=== PATIENT | male | born 1970 | race Caucasian/White ===

== ENCOUNTER 2019-02-10 01:57 | Emergency (ER) | payer OTHER ==
[~2019-02-10] VITALS: Ht 165.1 cm; Wt 65.8 kg
[2019-02-10] MEDS ORDERED: HYDROCODONE-AP1 EAC6 PO (02:46)
[2019-02-10] MEDS ORDERED: BACTRIM DS TAB1 EACH PO (02:46)
[2019-02-10 03:37] VITALS: BP 165/78
== END 2019-02-10 03:30 | disposition home or self-care (01) ==
LOC: M.ERS 01:57
DX: L02.413 Cutaneous abscess of right upper limb (principal)